=== PATIENT | female | born 1940 | race Caucasian/White ===

== ENCOUNTER 2017-06-18 11:54 | Emergency (ER) | payer OTHER ==
--- NOTE | 2017-06-18 12:21 | EDPHY ---
H & P Time Seen by Provider: 06/18/17 12:12 HPI/ROS: CHIEF COMPLAINT: Fall HISTORY OF PRESENT ILLNESS: The patient is a 76-year-old female with significant dementia post IL and CVA who presents to the emergency department after sustaining a fall. The patient states she had a mechanical fall this morning. Her fall was not witnessed. The patient reported the fall to care providers at her retirement. She denies headache or neck pain. She has had no nausea vomiting. No weakness or numbness. The patient's son is present who helps give history. He states that she has had significant confusion and dementia since her heart attack and subsequent stroke. She is on Eliquis. He states she is at her baseline. REVIEW OF SYSTEMS: My complete review of systems is negative except as mentioned in the HPI. Past Medical/Surgical History: Includes ACS, acute IL, CVA, hypothyroidism Past surgical history: Includes bypass Social history: The patient lives at retirement. Smoking Status: Never smoked Physical Exam: Vitals noted GENERAL: Well-appearing, in no acute distress, alert. HEAD: No evidence of trauma. EYES: PERRLA, EOMI, normal to inspection. ENT: Airway intact, normal external examination. NECK: The trachea is midline. There is no crepitus. The C-spine is nontender. RESPIRATORY: Clear to auscultation bilaterally, no rales, rhonchi or wheezing. There is no crepitus or palpable rib fractures. CVS: Regular rate and rhythm, no rubs, murmurs, or gallops. ABDOMEN: Soft, nontender, nondistended, normal bowel sounds, no bruising or abrasions. Pelvis: Stable. No tenderness palpation. Hips full range of motion. BACK: Normal to inspection, no spinal tenderness, no spinal step off, no notable bruising or abrasions. SKIN: Normal color, warm, dry. No pallor or diaphoresis. EXTREMITIES: Right upper extremity: Atraumatic. No visible signs of trauma. No tenderness palpation. Neurovascular intact distally. Left upper extremity: Atraumatic. No visible signs of trauma. No tenderness palpation. Neurovascular intact distally. Right lower extremity: Atraumatic. No visible signs of trauma. No tenderness palpation. Neurovascular intact distally. Left lower extremity: Atraumatic. No visible signs of trauma. No tenderness palpation. Neurovascular intact distally. NEURO/PSYCH: Alert and oriented x 2, GCS 14, normal mood and affect, normal motor sensory exam. Patient is talkative. This is her baseline Constitutional: Initial Vital Signs Temperature (C) 36.8 C 06/18/17 12:05 Heart Rate 72 06/18/17 12:05 Respiratory Rate 18 06/18/17 12:05 Blood Pressure 128/62 H 06/18/17 12:05 O2 Sat (%) 91 L 06/18/17 12:05 O2 Delivery Mode Room Air Allergies/Adverse Reactions: No Known Allergies Allergy (Unverified 06/18/17 12:12) Home Medications: Medication Instructions Recorded Amlodipine Besylate 06/18/17 Aspirin 06/18/17 Bethanechol 06/18/17 Eliquis 06/18/17 Ibuprofen 06/18/17 Levothyroxine 06/18/17 Lisinopril 06/18/17 Loperamide 06/18/17 Lorazepam 06/18/17 Metoprolol Succinate 06/18/17 Quetiapine Fumarate 06/18/17 Rivastigmine 06/18/17 Tramadol HCl 06/18/17 Medical Decision Making - Diagnostics Imaging Results: Imaging Impressions Cervical Spine CT 06/18/17 12:18 Impression: 1. No acute posttraumatic abnormality identified. If there is persistent pain or neurologic deficit, consider MRI and/or flexion and extension views if clinically indicated. 2. Multilevel degenerative change, with mild to moderate degenerative spinal canal narrowing. Sphenoid sinusitis. 3. Additional findings as above. Findings discussed with Dr. Silver Lee on June 18, [address] 06/18/17 12:18 Impression: 1. No acute intracranial findings. 2. Old/subacute left MCA infarct. 3. Diffuse cerebral atrophy with periventricular and subcortical low attenuation consistent with chronic microvascular ischemic gliosis. 4. Possible sphenoid sinusitis. Findings discussed with SILVER LEE 06/18/2017 at 12:54. ED Course/Re-evaluation: The patient's son is power of workers compensation attorney. In the emergency department I discussed possible etiologies with the patient and her son. I answered all her questions. Due to the reported fall the patient will have CT imaging of her head neck. The sun consents. Head CT/C-spine CT: No acute disease noted. Please refer the dictated report by Dr. Yip. I discussed the images with him by phone. The discussed the results with the patient and her son. I answered all her questions. The patient was given warnings prior to leaving. She will return worsening symptoms. Differential Diagnosis: My differential includes but is not limited to subarachnoid hemorrhage, subdural hematoma, epidural hematoma, ischemic CVA, hemorrhagic CVA, electrolyte abnormality, sugar abnormality, dementia, spinal injury Departure - Departure Disposition: Home, Routine, Self-Care Clinical Impression: Head injury Qualifiers: Encounter type: initial encounter Qualified Code(s): S09.90XA - Unspecified injury of head, initial encounter Condition: Good Instructions: Head Injury (ED), Fall Prevention (ED) Additional Instructions: Return with headache, vomiting, change in mental status or any other concerns. Follow up with your primary care physician this week.
[2017-06-18 12:30] VITALS: RESP 18; TEMP 98.2
[2017-06-18 13:14] VITALS: BP 116/64; PULSE 62; O2SAT 95
== END 2017-06-18 13:23 | disposition home or self-care (01) ==
LOC: CED 11:54
DX: S09.90XA Unspecified injury of head, initial encounter (principal); I25.2 Old myocardial infarction; Z79.01 Long term (current) use of anticoagulants; Z79.82 Long term (current) use of aspirin; Z86.73 Personal history of transient ischemic attack (TIA), and cerebral infarction without residual deficits; W18.39XA Other fall on same level, initial encounter
CPT/HCPCS: 70450-PO; 72125-PO